=== PATIENT | male | born 1970 | race American Indian/Alaskan Native ===

== ENCOUNTER 2022-01-04 06:43 | Day surgery (SDC) | payer MEDICARE ==
[2022-01-04] MEDS ORDERED: ASPIRIN EC 325 MG TAB PO ONE (07:42)
[2022-01-04 08:19] LABS: Basophils % (Auto) 0.4 % (0.0-1.8); Eosinophils # (Auto) 0.3 K/mm3 (0.0-0.4); Eosinophils % (Auto) 4.2 % (0.0-4.3); Hematocrit 38.1 % (35.5-45.6); Hemoglobin 11.8 gm/dl (11.8-15.2); Lymphocytes # (Auto) 2.7 K/mm3 (1.2-5.4); Lymphocytes % (Auto) 36.4 % (13.4-35.0); Mean Corpuscular HGB Conc 31 % (32-34); Mean Corpuscular Volume 99 fl (84-94); Monocytes # (Auto) 0.5 K/mm3 (0.0-0.8); Monocytes % (Auto) 7.3 % (0.0-7.3); Platelet Count 400 K/mm3 (140-440); Red Blood Count 3.84 M/mm3 (3.65-5.03)
[2022-01-04 08:29] LABS: INR 1.08 (0.87-1.13)
[2022-01-04 08:31] LABS: Calcium 8.5 mg/dL (8.4-10.2)
[2022-01-04] MEDS: SODIUM CHLORIDE 0.9% 500 ML 500 ML IV SCH ×2 (08:51→10:45)
--- NOTE | 2022-01-04 10:03 | Electrocardiograph Report ---
[facility] Test Date: 2022-01-04 Test Time: 08:20:36 Pat Name: CECILIO HAIR Department: Room: Gender: M [employer] E[employer]ctor: JONATHON : 1970 Requested By: SHANA GARCIA Order Number: [id number] Reading MD: Shana Garcia Measurements Intervals Holden Rate: 75 P: 42 CA: 147 QRS: -8 QRSD: 103 T: 160 QT: 427 QTc: 477 Interpretive Statements Sinus rhythm Abnormal T, consider ischemia, lateral leads No previous ECG available for comparison Electronically Signed On 01-04-2022 10:03:11 EST by Shana Garcia
[2022-01-04] MEDS: MIDAZOLAM 2 MG/2 ML INJ ONE ×2 (10:42→10:52)
[2022-01-04] MEDS: fentaNYL 100 MCG/2 ML INJ ONE ×2 (10:42→10:53)
[2022-01-04] MEDS: HEPARIN 10,000 UNITS/10 ML VIAL ONE ×2 (10:43→10:55)
[2022-01-04] MEDS: LIDOCAINE (2%) 20 MG/1 ML VIAL 20 ML MDV INFILTRATI ONE ×2 (10:43→10:54)
[2022-01-04] MEDS: VERAPAMIL 5 MG/2 ML INJ ONE ×2 (10:44→10:55)
[2022-01-04] MEDS: NITROGLYCERIN SYRINGE 3 ML ONE ×2 (10:45→10:55)
[2022-01-04] MEDS: HEPARIN/NS 5000 UNIT/500ML 1,000 ML IR ONE ×2 (10:46→10:55)
--- NOTE | 2022-01-04 12:18 | Cardiac Catherization Report ---
DATE OF PROCEDURE: 01/04/2022 CARDIAC CATHETERIZATION REFERRING PHYSICIAN: Dr. Rakesh Styles and Dr. Maximilian Cortez. INDICATIONS FOR PROCEDURE: The patient is a very pleasant 51-year-old -[place] gentleman with history of cardiomyopathy and atrial fibrillation, referred here for ischemic evaluation. Risks, benefits and alternatives discussed at length prior to obtaining informed consent. PROCEDURE IN DETAIL: The patient was brought to lab clerk in a postabsorptive state, prepped and draped in sterile fashion. Soham's test in right hand is normal. A 2 mL of 2% lidocaine used to anesthetize the right wrist. A standard 6-Greenlandic hydrophilic sheath used to cannulate the right radial artery via modified Seldinger technique. All exchanges performed to exchange a J-tip guidewire. A JL3.5 catheter was used to engage the left main. No dampening or ventricularization. Cineangiography performed in multiple projections. A JR4 catheter used to cross the aortic valve under fluoroscopic guidance. Left ventriculography performed in 30-degree ISAACS and 30-degree MOZAMBICAN projections via hand injections, catheter flushed. Manual pullback performed with continuous pressure monitoring. Catheter used to engage the right coronary. No dampening or ventricularization. Cineangiography performed in all projections. I directly supervised the administration of moderate sedation with fentanyl and Versed from 10:50 a.m. to 11:15 a.m. No immediate complications. DATA: Aortic pressure is 120/80, LV pressure is 120, LVEDP of 12 mmHg. Left ventriculography reveals severe global left ventricular hypokinesis, estimated ejection fraction of 30-35%. No evidence of aortic stenosis. The patient remained in sinus rhythm throughout the procedure. CORONARY ANATOMY: This is a right dominant system. Right coronary is a moderate sized vessel, courses AV groove and distally bifurcates into posterior descending and posterolateral branches. No discrete stenoses identified. Left main is short. No significant disease, bifurcates into left anterior descending and left circumflex. Left circumflex is moderate sized vessel, courses AV groove. No significant disease. LAD is a moderate-sized vessel, courses anterior intergroove, wraps around the apex. No significant disease. CONCLUSIONS: The patient is a pleasant 51-year-old -[place] gentleman: 1. No angiographic evidence of significant epicardial coronary artery disease in this right dominant system. 2. Severe global left ventricular hypokinesis, estimated ejection fraction of 30-35%. 3. No evidence of aortic stenosis. 4. Normal LVEDP. These findings are consistent with a severe dilated nonischemic cardiomyopathy, which is well compensated. He does have a history of atrial flutter, is on Eliquis. We will resume Eliquis. He had a Holter monitor, which showed some frequent PVCs. He is being evaluated for a defibrillator with Dr. Cortez. If this is not happening in the very near term, we will consider an external defibrillator. He is clinically stable. He is on adequate beta sameer and SANTIAGO inhibition. Again, continue Eliquis. Stable cardiac status. Results of procedure explained to the patient. All questions were addressed. TID: [id number] RECEIPT: [id number] MINGO/RICKEY
--- NOTE | 2022-01-04 12:47 | Short Stay Summary ---
Short Stay Documentation Date of service: 01/04/22 - History H&P: obtained from office - Allergies and Medications Current Medications: Allergies No Known Allergies Allergy (Unverified 01/04/22 07:41) Home Medications Medication Instructions Recorded Confirmed Last Taken Type Albuterol Sulfate [Proair 90 mcg IH DAILY PRN 01/04/22 01/04/22 01/03/22 History Respiclick] [address] [DepaKOTE DR] 500 mg PO DAILY 01/04/22 01/04/22 01/03/22 History 500 MG Fluticasone/Vilanterol [Breo 1 each IH DAILY 01/04/22 01/04/22 01/03/22 History Ellipta 200-25 Mcg INH] 1 PUFF Isosorbide Mononitrate [Isosorbide 120 mg PO DAILY 01/04/22 01/04/22 01/03/22 History Mononitrate ER] 120 MG carvediloL [Coreg] 25 mg PO BID 01/04/22 01/04/22 01/03/22 History 25 MG hydroCHLOROthiazide [HCTZ] 25 mg PO QDAY 01/04/22 01/04/22 01/03/22 History 25 MG lisinopriL [Zestril TAB] 40 mg PO QDAY 01/04/22 01/04/22 01/03/22 History 40 MG Active Medications Sodium Chloride (Nacl 0.9% 500 Ml) 500 mls @ 50 mls/hr IV DIRECT BASIM Stop: 01/04/22 17:59 Last Admin: 01/04/22 10:45 Dose: 50 mls/hr - Physical exam General appearance: no acute distress Integumentary: other (Right radial cath site inspected with no bleeding or hematoma noted. Distal PMS intact) - Brief post op/procedure progress note Date of procedure: 01/04/22 Pre-op diagnosis: Afib, CMP Post-op diagnosis: other (Normal coronary arteries) Procedure: [facility] see cath report Anesthesia: local Estimated blood loss: none - Disposition Condition at discharge: Stable Disposition: 01 HOME / SELF CARE / HOMELESS - Discharge Diagnoses (1) Normal coronary arteries Status: Acute Short Stay Discharge Plan Activity: advance as tolerated Diet: low fat, low cholesterol, low salt Wound: open to air, keep clean and dry, per your surgeon's advice Follow up with: ALIN BUCK [Other] - 7 Days LIANG STYLES MD [Staff Physician] - 7 Days (Patient should follow-up with Dr MADALYN Styles, [facility] student records specialist on 01/08/2022 at 2 PM in our [facility] location. [phone])
[2022-01-04 15:36] VITALS: BP 121/64
== END 2022-01-04 15:43 | disposition home or self-care (01) ==
LOC: CATHLABREC 06:43
PROVIDERS: ATTEND Internal Medicine
DX: R94.39 Abnormal result of other cardiovascular function study (principal); I42.9 Cardiomyopathy, unspecified; I48.91 Unspecified atrial fibrillation; E78.00 Pure hypercholesterolemia, unspecified; I10 Essential (primary) hypertension; E11.9 Type 2 diabetes mellitus without complications; I42.0 Dilated cardiomyopathy; E66.01 Morbid (severe) obesity due to excess calories; I48.92 Unspecified atrial flutter; Z79.899 Other long term (current) drug therapy; Z72.89 Other problems related to lifestyle; Z98.890 Other specified postprocedural states; Z68.41 Body mass index [BMI] 40.0-44.9, adult
CPT/HCPCS: 36415; 80048; 85025; 85610; 85730; 93005; 93010; 93458; 99156; 99157; C1894; J1644; J1815; J2250; J3010; J3490; J7040; Q9967